=== PATIENT | female | born 1945 | race Caucasian/White ===

== ENCOUNTER 2017-03-03 07:41 | Day surgery (SDC) | payer SELFPAY ==
[2017-03-03] MEDS ORDERED: Lactated Ringer's 500 ML IV ONE (07:55)
[2017-03-03] MEDS ORDERED: Propofol 10 mg/ml Inj (20 ML) ONE (09:02)
[2017-03-03 09:49] VITALS: BP 140/60; PULSE 54; RESP 16; TEMP 97; O2SAT 99
== END 2017-03-03 10:00 | disposition home or self-care (01) ==
LOC: H.ENDO 07:41
PROVIDERS: ATTEND Internal Medicine Gastroenterology
DX: Z12.11 Encounter for screening for malignant neoplasm of colon (principal); E11.9 Type 2 diabetes mellitus without complications; I10 Essential (primary) hypertension; G47.30 Sleep apnea, unspecified; K57.30 Diverticulosis of large intestine without perforation or abscess without bleeding; K64.2 Third degree hemorrhoids